=== PATIENT | male | born 1990 | race Caucasian/White ===

== ENCOUNTER → 2018-08-01 | Outpatient (CLI) | payer OTHER ==
[~2018-08-01] MED LIST: BENZ200C15 PO; GUAI120L3 PO
== END ==
LOC: LAB 10:42
PROVIDERS: ATTEND Urology
DX: Z31.69 Encounter for other general counseling and advice on procreation (principal)
CPT/HCPCS: 36415; 83001; 83002; 84146

== ENCOUNTER → 2018-08-12 | Outpatient (CLI) | payer OTHER | LOC: LAB 08:48 | PROVIDERS: ATTEND Urology | DX: Z31.69 Encounter for other general counseling and advice on procreation (principal) | CPT/HCPCS: 36415; 84402; 84403 ==